=== PATIENT | female | born 1990 | race Caucasian/White ===

== ENCOUNTER 2022-08-05 12:15 | Emergency (ER) | payer OTHER ==
[~2022-08-05] VITALS: Ht 167.6 cm; Wt 68.0 kg
[2022-08-05 10:59] VITALS: BP 118/65
[~2022-08-05 12:15] MED LIST: PNV1TABL5 PO
[2022-08-05 12:20] VITALS: BP 121/55
--- NOTE | 2022-08-05 12:26 | NUR ---
Pt ambulated to bed 11 with steady/even gait. Urine cup given.
--- NOTE | 2022-08-05 12:36 | NUR ---
32/F 23wks , , c/o intermittent chest pain, pelvic/abd pain, headache x 1 day. Patient initially presented to L&D, sent back down after c/o chest pain. L&D treatment received included UA, COVID test, and EFM monitoring for 1 hour. Patient A&Ox4, ambulatory, intermittent chest pain x 1 day; started yesterday constant for 2-3 hours and subsided. States chest pain worsens with deep breaths. Denies CP at this time. Reports LLQ yesterday, states woke up with RLQ pain that occurs while lying down. Patient states LLQ abdominal pain 3/10, pressure/pushing/constant, non-radiating lasting <1 minute per episode. Denies nausea, vomiting, diarrhea, constipation, fever, chills, SOB, dysuria, cough, urinary symptoms. Pt placed in a gown and cardiac cath lab technologist in place. Bed locked in lowest position, side rails x 1. LMP: March 13, 2022. On prenatals. PMH: hep C (completed tx, haven't tested viral load since treatment), HPV Meds: prenatals, iron NKDA Sx: Denies
--- NOTE | 2022-08-05 12:36 | NUR ---
Dr. Rodriguez evaluating pt at bedside
[2022-08-05] MEDS ORDERED: DOPPLER MC ONE (13:00)
--- NOTE | 2022-08-05 13:04 | NUR ---
Lab at bedside
[2022-08-05 14:34] VITALS: BP 112/57
--- NOTE | 2022-08-05 14:34 | NUR ---
Note gabrielaone in EDM - 08/05/22 at 1436 by RENEE Patient discharged with v/s stable. Written and verbal after care instructions given and explained for Nonspecific Chest pain, Adult. Patient alert, oriented and verbalized understanding of instructions. Ambulatory with steady gait. All questions addressed prior to discharge. ID band removed. Patient advised to follow up with PMD. Rx of Pepcid, Acetaminophen given. Patient educated on indication of medication including possible reaction and side effects. Opportunity to ask questions provided and answered.
--- NOTE | 2022-08-05 14:36 | NUR ---
Patient discharged with v/s stable. Written and verbal after care instructions given and explained. Patient verbalized understanding. Ambulatory with steady gait. All questions addressed prior to discharge. Advised to follow up with PMD. Copies of Covid swab and lab work given to patient.
== END 2022-08-05 14:36 | disposition home or self-care (01) ==
LOC: EDSTATUS 12:15 → MED 12:15
DX: O99.412 Diseases of the circulatory system complicating pregnancy, second trimester (principal); R07.9 Chest pain, unspecified; O26.892 Other specified pregnancy related conditions, second trimester; R10.32 Left lower quadrant pain; Z20.822 Contact with and (suspected) exposure to COVID-19; Z3A.23 23 weeks gestation of pregnancy; Z79.899 Other long term (current) drug therapy
CPT/HCPCS: 36415; 59025; 81000; 85379; 93005; 99284